=== PATIENT | female | born 1930 ===

== ENCOUNTER → 2020-01-14 | Outpatient (CLI) | payer MEDICARE ==
--- NOTE | 2020-01-14 14:59 | KCIC ---
INDICATION: Osteoporosis screening. Postmenopausal screening COMPARISON: None. TECHNIQUE: Bone densitometry was performed through the lumbar spine and proximal femur. FINDINGS: Lumbar Spine: BMD: 1.18 T-Score: 1.2 Proximal Femur: BMD: 0.84 T-Score: -0.8 IMPRESSION: 1. Lumbar spine falls within the normal range. 2. Proximal femur falls within the lower limits of normal on border with osteopenia range. Electronically signed by: Piotr Cabrera MD (01/14/2020 2:56 PM) [id number]
== END ==
LOC: KCIC DEXA 13:12
PROVIDERS: ATTEND Family Medicine
DX: M85.88 Other specified disorders of bone density and structure, other site (principal); N95.9 Unspecified menopausal and perimenopausal disorder
CPT/HCPCS: 77080